=== PATIENT | male | born 1960 | race Caucasian/White ===

== ENCOUNTER 2016-09-09 08:39 | Emergency (ER) | payer OTHER ==
[~2016-09-09] VITALS: Ht 175.3 cm; Wt 90.7 kg
[2016-09-09] MEDS ORDERED: ZESTRIL40 MG PO (09:03)
[2016-09-09] MEDS ORDERED: PRAVACHOL40 MG PO (09:03)
[2016-09-09] MEDS ORDERED: MOBIC15 MG PO (09:03)
[2016-09-09] MEDS ORDERED: ASPIR 8181 MG PO (09:04)
[2016-09-09] MEDS ORDERED: KEFLEX500 MG PO (10:21)
[2016-09-09 10:48] VITALS: BP 147/91
== END 2016-09-09 10:48 | disposition home or self-care (01) ==
LOC: ER 08:39
DX: I83.892 Varicose veins of left lower extremity with other complications (principal); F10.99 Alcohol use, unspecified with unspecified alcohol-induced disorder

== ENCOUNTER 2017-11-12 11:15 | Emergency (ER) | payer OTHER ==
[~2017-11-12] VITALS: Ht 175.3 cm; Wt 90.7 kg
[~2017-11-12 11:15] MED LIST: ASPIR 8181 MG PO; KEFLEX500 MG PO; MOBIC15 MG PO; PRAVACHOL40 MG PO; ZESTRIL40 MG PO
== END 2017-11-12 14:30 | disposition home or self-care (01) ==
LOC: ER 11:15
DX: I83.892 Varicose veins of left lower extremity with other complications (principal)